=== PATIENT | male | born 1955 | race Caucasian/White ===

== ENCOUNTER 2021-06-21 14:19 | Emergency (ER) | payer BC ==
[2021-06-21] MEDS ORDERED: Oxymetazoline 0.05% Nasal Spray 30 ML Bottle ONE (14:32)
[2021-06-21] MEDS ORDERED: Lidocaine 1% with EPINEPHrine 1:100,000 20 ML MDV ONE (14:33)
--- NOTE | 2021-06-21 14:50 | EDM.PDOC ---
ED HPI GENERAL MEDICAL PROBLEM - General Chief Complaint: ENT Problem Stated Complaint: ? Time Seen by Provider: 06/21/21 14:30 Source of Information: Reports: Patient History Limitations: Reports: No Limitations - History of Present Illness INITIAL COMMENTS - FREE TEXT/NARRATIVE: 65 y/o M presents with nose bleed for the last hour. He reports a hx of nose bleeds on and off for the last few years. Not on blood thinners. Had to have surgery once at [facility] for posterior cauterization of uncontrolled nose bleed. He reports bleeding is occurring from the R nare and he has tried direct pressure with no success. 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 Denies baum, vision prob, cp, db, abd pn, recent trauma. Onset: Today, Sudden Duration: Minutes: right leg Pain Score (Numeric/FACES): 1 - Related Data Allergies Allergy/AdvReac Type Severity Reaction Status Date / Time No Known Allergies Allergy Verified 06/21/21 14:30 Home Meds: Home Meds Metoprolol Tartrate [Lopressor] 200 mg PO BID 06/21/21 [History] amLODIPine Besylate [Amlodipine Besylate] 10 mg PO DAILY 06/21/21 [History] hydrALAZINE [Apresoline] 50 mg PO Q8H 06/21/21 [History] ED ROS ENT - Review of Systems Review Of Systems: Comprehensive ROS is negative, except as noted in HPI. ED EXAM, ENT - Physical Exam Exam: See Below Exam Limited By: No Limitations General Appearance: Alert Eye Exam: Bilateral Eye: PERRL Nose: Other (heavy bleeding from R nare. Copius amount of clots present in emesis back from nose.) Mouth/Throat: Other (blood in oroparhynx from nose bleed. ) Neck: Supple, Non-Tender Respiratory/Chest: Lungs Clear Cardiovascular: Normal Peripheral Pulses, Regular Rate, Rhythm GI/Abdominal: Soft, Non-Tender (Male) Exam: Deferred Rectal (Males) Exam: Deferred Extremities: Other (cellulitis present R lower anterior medial chavez) ED ENT PROCEDURES - Epistaxis Procedure Indication: Epistaxis, Uncontrolled Recent anticoagulants/antiplatlets: No Uncontrolled HTN: No Recent septal/nasal surgery: No Site of bleeding: Right Nare Clearing of clots: Patient Blew Nose Topical Meds: Other (afrin) Ice pack to area: Yes Posterior packing: Other (rhino rocket soaked in TXA inflated with 20mls air) Complications: No Course - Vital Signs Last Recorded V/S: Last Vital Signs Temp 98.6 F 06/21/21 14:26 Pulse 77 06/21/21 14:26 Resp 20 06/21/21 14:26 BP 168/114 H 06/21/21 14:26 Pulse Ox 94 L 06/21/21 14:26 - Orders/Labs/Meds Meds: Medications Discontinued Medications Generic Name Dose Route Start Last Admin Trade Name Sarah PRN Reason Stop Dose Admin Lidocaine/Epinephrine Confirm 06/21/21 14:33 06/21/21 14:40 Lidocaine 1% With Epinephrine 1:100,000 20 Ml Mdv Administered 06/21/21 14:34 20 ml Dose Administration 20 ml .ROUTE .STK-MED ONE Oxymetazoline HCl Confirm 06/21/21 14:32 06/21/21 14:41 Oxymetazoline 0.05% Nasal [place] 30 Ml Bottle Administered 06/21/21 14:33 2 spray Dose Administration 30 ml .ROUTE .STK-MED ONE Tranexamic Acid 500 mg 06/21/21 14:29 06/21/21 14:34 Tranexamic Acid 1,000 Mg/10 Ml Amp TOP 06/21/21 14:30 500 mg ONETIME ONE Administration Departure - Departure Time of Disposition: 14:51 Disposition: Home, Self-Care 01 Condition: Fair Clinical Impression: Epistaxis Cellulitis, leg Qualifiers: Laterality: right Qualified Code(s): L03.115 - Cellulitis of right lower limb - Discharge Information *PRESCRIPTION DRUG MONITORING PROGRAM REVIEWED*: No *COPY OF PRESCRIPTION DRUG MONITORING REPORT IN PATIENT BEAR: No Instructions: Cellulitis, Adult, Nosebleed, Adult, [id number] Additional Instructions: RX: Keflex Leave rhino rocket in for 48 to 72 hours. Follow up with your primary care facility about your nose bleed and cellulitis. If any new symptoms or concerns develop contact your primary care facility or return to the ER. Sepsis Event Note (ED) - Evaluation Sepsis Screening Result: No Definite Risk - Focused Exam Vital Signs: Vital Signs Temp Pulse Resp BP Pulse Ox 06/21/21 14:26 98.6 F 77 20 168/114 H 94 L
== END 2021-06-21 15:30 | disposition home or self-care (01) ==
LOC: DL.ED 14:19
DX: R04.0 Epistaxis (principal); L03.115 Cellulitis of right lower limb
CPT/HCPCS: 30905; 99283; A9270

== ENCOUNTER 2025-08-20 22:11 | Emergency (ER) | payer MEDICARE, OTHER ==
[~2025-08-20 22:11] MED LIST: Sodium Chloride 0.9% 10 ML Syringe FLUSH PRN
[2025-08-20 22:47] LABS: BASOPHILS PERCENT AUTO 0.5 % (0.0-1.0); EOSINOPHILS PERCENT AUTO 0.3 % (1.0-3.0); LYMPHOCYTES PERCENT AUTO 7.4 % (20.5-50.1); MONOCYTES PERCENT AUTO 6.9 % (2-8); NEUTROPHILS PERCENT AUTO 84.9 % (42.2-75.2); PLATELET COUNT,PLT 209 10^3/uL (150-450); RED BLOOD CELL COUNT 4.65 10^6/uL (4.6-6.2); WHITE BLOOD CELL COUNT,WBC 10.5 10^3/uL (5.0-10.0)
[2025-08-20 23:02] LABS: INR 0.9 (0.9-1.2)
[2025-08-20 23:07] LABS: A/G RATIO 1.0; ALANINE AMINOTRANSFERASE,ALT 19 U/L (16-63); ASPARTATE AMNIOTRANSFERASE,AST 11 U/L (15-37); BILIRUBIN TOTAL 0.5 mg/dL (0.2-1.0); BLOOD UREA NITROGEN,BUN 21 mg/dL (7-18); CARBON DIOXIDE,CO2 34 mmol/L (21-32); CHLORIDE,CL 96 mmol/L (98-107); CREATININE 1.53 mg/dL (0.70-1.30); GLUCOSE RANDOM 203 mg/dL (70-99); POTASSIUM,K 3.3 mmol/L (3.5-5.1); PROTEIN TOTAL,TP 6.9 g/dL (6.4-8.2); SODIUM,NA 141 mmol/L (136-145)
[2025-08-20 23:10] LABS: ESTIMATED GFR 49 mL/min (>=60); ETHANOL BLOOD MEDICAL < 3 mg/dL (0)
[2025-08-20] MEDS: Iopamidol 755 Mg/ML 100 ML Bottle IVPUSH ONE (23:13)
[2025-08-20 23:16] LABS: AMPHETAMINES,URINE NEGATIVE (NEGATIVE); BARBITURATES,URINE NEGATIVE (NEGATIVE); MDMA (ECSTASY), URINE NEGATIVE (NEGATIVE); METHAMPHETAMINES,URINE NEGATIVE (NEGATIVE); OPIATES,URINE NEGATIVE (NEGATIVE); OXYCODONE,URINE NEGATIVE (NEGATIVE); PHENCYCLIDINE,URINE NEGATIVE (NEGATIVE); TCA,URINE NEGATIVE (NEGATIVE)
[2025-08-20] MEDS: NS + KCl 20mEq/L 1,000 ML IV SCH (23:37)
[2025-08-26] MEDS: Ondansetron 4 MG/2 ML SDV ONE (16:27)
== END 2025-08-21 00:35 ==
LOC: DL.ED 22:11
DX: R41.82 Altered mental status, unspecified (principal); R47.01 Aphasia; I11.0 Hypertensive heart disease with heart failure; I50.9 Heart failure, unspecified; E11.9 Type 2 diabetes mellitus without complications; Z79.899 Other long term (current) drug therapy
CPT/HCPCS: 36415; 70450; 70496; 70498; 71045; 80053; 80305; 80307; 82947; 84484; 85025; 85610; 93005; 93010; 96365; 99285; J3480; Q9967